=== PATIENT | male | born 1975 | race Caucasian/White ===

== ENCOUNTER → 2017-01-27 | Outpatient (CLI) | payer BC ==
--- NOTE | 2017-01-27 14:54 | CR ---
EXAMINATION: Left wrist HISTORY: Fracture COMPARISON: 12/25/2016, 12/10/2016 TECHNIQUE: 2 views FINDINGS: There is an old ulnar styloid fracture identified. Cystic degenerative changes noted withi n the scaphoid. The radiocarpal alignment appears preserved. No fracture or acute osseous abnormalit y. IMPRESSION: 1. Chronic ulnar styloid fracture. 2. Mild Cystic degenerative changes noted within the scaphoid.
== END ==
LOC: MW.CHORTHO 07:35
PROVIDERS: ATTEND Physician Assistant
DX: S52.612D Displaced fracture of left ulna styloid process, subsequent encounter for closed fracture with routine healing (principal)
CPT/HCPCS: 73100-26-LT; 73100-LT

== ENCOUNTER 2019-06-03 07:50 | Day surgery (SDC) | payer BC ==
[~2019-06-03 07:50] MED LIST: Lactated Ringers 1,000 ML IV SCH
--- NOTE | 2019-06-03 08:50 | PCM.PREANE ---
Preanesthetic Assessment - Anesthesia/Transfusion/Family Hx Anesthesia History: Prior Anesthesia Without Reaction Family History of Anesthesia Reaction: No Transfusion History: No Prior Transfusion(s) Intubation History: Unknown - Review of Systems General: No Symptoms Pulmonary: No Symptoms Cardiovascular: No Symptoms Gastrointestinal: Hematochezia, Other (GERD) Neurological: No Symptoms Other: Reports: None - Physical Assessment O2 Sat by Pulse Oximetry: 94 Respiratory Rate: 16 Vital Signs: Last Vital Signs Temp 35.8 C 06/03/19 08:10 Pulse 95 06/03/19 08:10 Resp 16 06/03/19 08:10 BP 131/78 06/03/19 08:10 Pulse Ox 94 L 06/03/19 08:10 Height: 5 ft 10 in Weight: 163.293 kg ASA Class: 2 Mental Status: Alert & Oriented x3 Airway Class: Mallampati = 3 Dentition: Reports: Normal Dentition Thyro-Mental Finger Breadths: 2 Mouth Opening Finger Breadths: 2 ROM/Head Extension: Full Lungs: Clear to Auscultation, Normal Respiratory Effort Cardiovascular: Regular Rate, Regular Rhythm - Allergies Allergies/Adverse Reactions: Allergies Allergy/AdvReac Type Severity Reaction Status Date / Time Penicillins Allergy Hives Verified 05/27/19 11:11 - Blood Blood Available: No - Anesthesia Plan Pre-Op Medication Ordered: None - Acknowledgements Anesthesia Type Planned: MAC Pt an Appropriate Candidate for the Planned Anesthesia: Yes Alternatives and Risks of Anesthesia Discussed w Pt/Guardian: Yes Pt/Guardian Understands and Agrees with Anesthesia Plan: Yes PreAnesthesia Questionnaire Respiratory History: Reports: Asthma, Other (See Below) Other Respiratory History: had some Expiratory wheezing 6 months ago and was given and inhaler, has not used for 3 months Gastrointestinal History: Reports: GERD Musculoskeletal History: Reports: Fracture, Gout, Osteoarthritis Other Musculoskeletal History: hx of fx left wrist Endocrine/Metabolic History: Reports: Obesity/BMI 30+ - Past Surgical History Musculoskeletal Surgical History: Reports: Other (See Below) Other Musculoskeletal Surgeries/Procedures:: removal of bone cyst right ring finger- bone graft x2 - SUBSTANCE USE Smoking Status *Q: Former Smoker Tobacco Use Within Last Twelve Months: Cigarettes Recreational Drug Use History: No - HOME MEDS Home Medications: Home Meds Albuterol [Ventolin HFA] 2 puff INH Q4H PRN 05/27/19 [History] - CURRENT (IN HOUSE) MEDS Current Meds: Current Medications Lactated Ringer's (Ringers, Lactated) 1,000 mls @ 125 mls/hr IV ASDIRECTED [facility] Last Admin: 06/03/19 08:29 Dose: 125 mls/hr
[2019-06-03] MEDS ORDERED: Propofol 200 MG/20 ML SDV ONE ×2 (08:54→10:45)
[2019-06-03] MEDS ORDERED: Lidocaine 2% 5 ML SDV ONE (08:54)
--- NOTE | 2019-06-03 10:45 | PCM.OPNOTE ---
- General Post-Op/Procedure Note Date of Surgery/Procedure: 06/03/19 Operative Procedure(s): egd w bx. colonoscopy w bx Findings: see dict [id number] Pre Op Diagnosis: gerd and BRBPR Post-Op Diagnosis: Same Anesthesia Technique: Moderate Sedation Primary Surgeon: Clay Miller Pathology: egd bx bx at cecum, colon, polyp at 40 cm, colon bx at 25, 20, 15, 10, 5 cm Complications: None Condition: Good
--- NOTE | 2019-06-03 11:21 | PCM.POSTAN ---
POST ANESTHESIA ASSESSMENT - MENTAL STATUS Mental Status: Alert, Oriented - RESPIRATORY Respiratory Status: Respiratory Rate WNL, Airway Patent, O2 Saturation Stable - CARDIOVASCULAR CV Status: Pulse Rate WNL, Blood Pressure Stable - GASTROINTESTINAL GI Status: No Symptoms - PAIN Pain Score: 0 - POST OP HYDRATION Hydration Status: Adequate & Stable - OBSERVATIONS Free Text/Narrative:: No anesthesia problems,patient skipped recovery room stage of postoperative care
--- NOTE | 2019-06-03 11:29 | OR ---
SURGEON: Clay Miller MD DATE OF PROCEDURE: 06/03/2019 PREOPERATIVE DIAGNOSES: Gastroesophageal reflux disease and bright red blood per rectum. POSTOPERATIVE DIAGNOSES: Esophagogastroduodenoscopy is gastroesophageal reflux disease and colonoscopy diagnosis is proctitis and colitis and colon polyp and diverticulitis. PROCEDURES PERFORMED: Esophagogastroduodenoscopy with biopsy and colonoscopy with biopsy. DESCRIPTION OF PROCEDURE: EGD: The patient was taken to the endoscopy room, and with the TELEMARKETER SUPERVISOR, Diprivan was administered. A well-lubricated EGD scope was gently inserted through the oropharynx, down the esophagus, passing through the gastroesophageal junction, into the stomach. The mucosa was examined upon the passage. Any etiology will be noted. Once in the stomach, we continued to advance to the distal antrum, passed through the pylorus into the second portion of the duodenum. Again, the mucosa was examined for any abnormality and etiology. The scope was then retrieved back to the stomach and then retroflexed to look at the fundus of the stomach. If a biopsy was indicated, we will biopsy the antrum, body, and gastroesophageal junction. The air will be sucked out while the scope is retrieved to reduce the patient's discomfort. The patient tolerated the procedure well. There were no intraoperative complications. Dr. Miller was present through the whole procedure. Prior to surgery, a time-out had been called, the patient identified, procedure identified and antibiotic administered. The patient was taken to the endoscopy room. A time out was called, patient identified, and procedure identified. Diprivan was then administrated. Patient went from awake to sleep, hearing doctor talking or door closing is normal. Perineum inspection and digital examination were then performed. A well- lubricated colonoscope was gently inserted through the rectum, advanced past the rectosigmoid junction, the descending colon, splenic flexure, transverse colon, hepatic flexure, ascending colon, arrived to the cecum. Cecum was identified as dictated in the finding. Then the scope was carefully withdrawn while attention was paid to the mucosal surface for any abnormality. Air will be sucked out during the scope withdrawal. At the rectum, retroflexed to examine any rectal diseases, fistula or hemorrhoids. During mucosal examination, abnormality or polyp was noted; picture taken and biopsy performed. Patient tolerated procedure well. There were no intraoperative complications, and Dr. Miller was present throughout the whole procedure. FINDINGS: EGD findings: 1. The patient is easily sedated with TELEMARKETER SUPERVISOR and Diprivan, the patient is soundly snoring. 2. Oropharynx and proximal esophagus are free of disease, infection, inflammation, or stricture. Distal esophagus at GE junction at 40 shows significant salmon-color change consistent with moderate GERD and maybe even a concern about [place] esophagitis. Stomach rugae are normal in appearance and there is no blood, bile, or food particle observed. Duodenum is grossly normal in appearance. Retroflexed look at the fundus of the stomach, there is no hiatal hernia. Biopsy done at antrum, body, GE junction at 40 and sucked out the gas while scope pulling out. Colonoscopy findings: 1. The patient is easily sedated with TELEMARKETER SUPERVISOR and Diprivan, the patient is soundly snoring. 2. Bowel prep is marginally acceptable, almost unacceptable. Large amount of liquid stool, opaque, and coating the mucosa. However, one can easily remove it by irrigation, but the study is still compromised because of requiring large amount of irrigation. I had to irrigate the opaque liquid stool pooled back, and makes the examination difficult. Cecum is indicated by ileocecal fold, one-to-one indentation, appendiceal orifice. Light emittance is not observed as the patient's BMI is 56. Mucosa examined upon scope pulling out with constant irrigation and biopsy done at cecum, concerned about inflammatory bowel disease. Also, biopsy done at colon and then at around distance 40 when the scope coming out and there is a 2 mm sessile polyp, it was biopsied too. At distance 25, we start to encounter the severe colitis. Biopsy done at 25, 20, 15, and 10. The colitis with inflammation like the membrane situation, like the mucus, is pretty severe, although there is no radha bleeding from 25 to 15 and then getting better from 15 to 5, I mean almost like normal. Then at the rectum around 5 or 10 cm, we start to have the membrane colitis again and these are called proctitis. So biopsy was done at 25, 20, 15, 10, and 5 or equal to the retroflex. The patient has mild internal hemorrhoid. The patient would benefit from repeat colonoscopy around 6 to 12 months to look at the colitis. The patient will benefit from a GI consult for the treatment of the proctitis and colitis. LAXMI / HARRISON /[id number]
== END 2019-06-03 11:10 | disposition home or self-care (01) ==
LOC: MW.SDS 07:50
PROVIDERS: ATTEND Surgery
DX: D12.5 Benign neoplasm of sigmoid colon (principal); K29.51 Unspecified chronic gastritis with bleeding; K21.9 Gastro-esophageal reflux disease without esophagitis; K31.89 Other diseases of stomach and duodenum; K52.9 Noninfective gastroenteritis and colitis, unspecified; E66.9 Obesity, unspecified; Z68.43 Body mass index [BMI] 50.0-59.9, adult; Z88.0 Allergy status to penicillin; Z87.891 Personal history of nicotine dependence
CPT/HCPCS: 43239; 45380; J2001; J2704; J7120